=== PATIENT | female | born 1965 | race African-American/Black ===

== ENCOUNTER 2016-08-13 07:34 | Emergency (ER) | payer BC ==
[~2016-08-13] VITALS: Ht 170.2 cm; Wt 87.0 kg
[~2016-08-13 07:34] MED LIST: ADVIL200 M3 PO; ANUSOL-HC21 GM PR; BAYER BACK & B1 EACH PO; BIOTIN 5000MCG PO; DOCUSATE CALCI240 MG PO; FERROUS SULFAT325 MG PO; METFORMIN HCL500 MG PO; MIRALAX255 GM PO; PERCOCET 5/31 TABLET PO; SENNA8.6 M1 PO
[2016-08-13 08:45] LABS: HEMATOCRIT 36.2 % (36.0-46.0); MCH 21.6 PG (29.0-34.0); MCHC 30.7 G/DL (30.0-36.0); MCV 70.6 FL (83-99); MEAN PLAT.VOLUME 11.2 uM^3 (9.5-12.4); PLATELET COUNT 268 K/uL (156-360); RBC DIS.WIDTH-CV 19.3 % (11.8-14.6); RBC DIS.WIDTH-SD 48.7 % (39-53); RED BLOOD COUNT 5.13 M/uL (3.80-5.20); WHITE BLOOD COUNT 11.4 K/uL (4.1-10.2)
[2016-08-13 08:57] LABS: CHLORIDE 105 mEq/L (99-109); POTASSIUM 3.9 mEq/L (3.7-5.4); SODIUM 137 mEq/L (136-147)
[2016-08-13 08:59] LABS: GLUCOSE 145 mg/dL (70-99)
[2016-08-13 09:00] LABS: ANION GAP 12 MEQ/L (2-14)
[2016-08-13 09:01] LABS: TOTAL BILIRUBIN 0.6 mg/dL (0.0-1.0)
[2016-08-13 09:02] LABS: ALKALINE PHOSPHATASE 95 IU/L (3-129); GFR ESTIMATE (CALCULATED) > 59 mL/min/
[2016-08-13 09:04] LABS: UREA NITROGEN (BUN) 8 mg/dL (9-23)
[2016-08-13 09:06] LABS: LIPASE 21 U/L (1.0-51.0)
[2016-08-13 09:11] LABS: QUANTITATIVE HCG < 4.0 MIU/ML
[2016-08-13 11:16] LABS: ADD MIUA? YES; BILIRUBIN NEGATIVE; BLOOD SMALL; GLUCOSE (STRIP) NEGATIVE; KETONES NEGATIVE; LEUKOCYTES MODERATE; NITRITE NEGATIVE; PROTEIN (STRIP) NEGATIVE; SPECIFIC GRAVITY 1.009 (1.000-1.030); UROBILINOGEN 0.2 MG/DL (0.2-1.0)
[2016-08-13 11:18] LABS: COLOR PALE YELLOW ((YELLOW))
[2016-08-13 11:55] LABS: BACTERIA NONE SEEN; CASTS NONE SEEN /LPF; CRYSTALS NONE SEEN; EPITHELIAL CELLS RARE; MUCUS NONE SEEN; RED BLOOD CELLS NONE SEEN /HPF (0-5); UCUL ADDED? NO; WHITE BLOOD CELLS 0-5 /HPF (0-5)
[2016-08-13] MEDS ORDERED: NORCO 5/3251 TABLET PO (12:19)
[2016-08-13] MEDS ORDERED: NAPROSYN500 MG PO (12:19)
[2016-08-13] MEDS ORDERED: ZOFRAN ODT4 MG PO (12:19)
[2016-08-13 13:03] VITALS: BP 124/63
== END 2016-08-13 13:05 | disposition home or self-care (01) ==
LOC: EME 07:34
PROVIDERS: Nurse Practitioner Family
DX: R10.30 Lower abdominal pain, unspecified (principal); D25.9 Leiomyoma of uterus, unspecified; R11.2 Nausea with vomiting, unspecified; R30.0 Dysuria; R31.9 Hematuria, unspecified; E11.65 Type 2 diabetes mellitus with hyperglycemia; Z79.84 Long term (current) use of oral hypoglycemic drugs; Z91.09 Other allergy status, other than to drugs and biological substances
CPT/HCPCS: 74176; 76856; 80053; 81003; 83690; 84702; 85027; 99281; 99285; J1885; J2270; J7030

== ENCOUNTER → 2016-10-04 | Outpatient (CLI) | payer BC ==
[~2016-10-04] VITALS: Ht 170.2 cm; Wt 88.9 kg
[~2016-10-04] MED LIST changes: +ALEVE220 M2 PO; +NAPROSYN500 MG PO; +NORCO 5/3251 TABLET PO; +ZESTRIL10 MG PO; +ZOFRAN ODT4 MG PO
[2016-10-04 09:41] LABS: POINT-OF-CARE METER ID UU13113694
[2016-10-04 11:22] LABS: POINT-OF-CARE METER ID UU13113819
== END | disposition home or self-care (01) ==
LOC: AMB 09:00
PROVIDERS: Internal Medicine
PROC: 0DJD8ZZ Inspection of Lower Intestinal Tract, Via Natural or Artificial Opening Endoscopic (ICD-10-PCS; principal; 2016-10-04)
DX: Z12.11 Encounter for screening for malignant neoplasm of colon (principal); Z80.0 Family history of malignant neoplasm of digestive organs; E11.9 Type 2 diabetes mellitus without complications; D50.9 Iron deficiency anemia, unspecified; Z79.84 Long term (current) use of oral hypoglycemic drugs; Z91.09 Other allergy status, other than to drugs and biological substances; Z83.3 Family history of diabetes mellitus; Z82.49 Family history of ischemic heart disease and other diseases of the circulatory system; Z82.69 Family history of other diseases of the musculoskeletal system and connective tissue; I10 Essential (primary) hypertension; E66.9 Obesity, unspecified; Z68.31 Body mass index [BMI] 31.0-31.9, adult
CPT/HCPCS: 82948; J2250; J3010

== ENCOUNTER 2016-11-03 14:35 | Observation (INO) | payer BC ==
[~2016-11-03] VITALS: Ht 170.2 cm; Wt 86.8 kg
[2016-11-03 15:18] LABS: ADD MIUA? YES; BILIRUBIN NEGATIVE; BLOOD SMALL; COLOR STRAW ((YELLOW)); GLUCOSE (STRIP) NEGATIVE; KETONES NEGATIVE; LEUKOCYTES NEGATIVE; NITRITE NEGATIVE; PROTEIN (STRIP) 30; SPECIFIC GRAVITY 1.011 (1.000-1.030); UROBILINOGEN 0.2 MG/DL (0.2-1.0)
[2016-11-03 15:25] LABS: EOSINOPHIL (%) 0.1 % (0-5); HEMATOCRIT 38.6 % (36.0-46.0); IMMATURE GRANULOCYTE (%) 0.2 % (0.0-0.7); INSTRUMENT ABS NEUTROPHIL CT 8.9 K/uL; LYMPHOCYTE COUNT 1.5 K/uL (1.0-2.8); MCH 23.7 PG (29.0-34.0); MCHC 30.8 G/DL (30.0-36.0); MCV 76.9 FL (83-99); MEAN PLAT.VOLUME 10.5 uM^3 (9.5-12.4); MONOCYTE COUNT 0.3 K/uL (0-0.8); NEUTROPHIL (%) 82.5 % (45-76); NEUTROPHIL COUNT 8.9 K/uL (1.8-6.4); PLATELET COUNT 290 K/uL (156-360); RBC DIS.WIDTH-CV 16.7 % (11.8-14.6); RBC DIS.WIDTH-SD 46.5 % (39-53); RED BLOOD COUNT 5.02 M/uL (3.80-5.20); WHITE BLOOD COUNT 10.8 K/uL (4.1-10.2)
[2016-11-03 15:33] LABS: CHLORIDE 102 mEq/L (99-109); SODIUM 136 mEq/L (136-147)
[2016-11-03 15:35] LABS: GLUCOSE 108 mg/dL (70-99)
[2016-11-03 15:37] LABS: ANION GAP 10 MEQ/L (2-14); TOTAL BILIRUBIN 0.8 mg/dL (0.0-1.0)
[2016-11-03 15:39] LABS: ALKALINE PHOSPHATASE 97 IU/L (3-129); GFR ESTIMATE (CALCULATED) > 59 mL/min/
[2016-11-03 15:40] LABS: UREA NITROGEN (BUN) 9 mg/dL (9-23)
[2016-11-03 15:42] LABS: LIPASE 12 U/L (1.0-51.0)
[2016-11-03 15:48] LABS: BACTERIA 3+ /HPF; EPITHELIAL CELLS 2+ /HPF; MUCUS NONE SEEN /LPF; RED BLOOD CELLS 0-5 /HPF (0-5); WHITE BLOOD CELLS 0-5 /HPF (0-5)
[2016-11-03 15:58] LABS: QUANTITATIVE HCG < 4.0 MIU/ML
[2016-11-03] MEDS ORDERED: MOTRIN800 MG PO (18:40)
[2016-11-03] MEDS ORDERED: NORCO 10/3251 TABLET PO (18:40)
[2016-11-03 21:34] VITALS: BP 148/78
[2016-11-04] VITALS: BP 136/69
[2016-11-04 04:00] VITALS: BP 132/60
[2016-11-04 07:21] VITALS: BP 127/64
[2016-11-04 10:47] VITALS: BP 115/58
[2016-11-04] MEDS ORDERED: PERCOCET 5/31 TABLET PO (11:59)
[2016-11-04] MEDS ORDERED: PHENAZOPYRIDIN100 MG PO (11:59)
[2016-11-05 13:07] LABS: CHLAMYDIA TRACHOMATIS NEGATIVE; NEISSERIA GONORRHOEAE NEGATIVE
== END 2016-11-04 14:09 | disposition home or self-care (01) ==
LOC: EME 14:35 → EDOF 19:39 → 5WEST 19:39
PROVIDERS: Physician Assistant
DX: R10.31 Right lower quadrant pain (principal); R10.2 Pelvic and perineal pain; E11.9 Type 2 diabetes mellitus without complications
CPT/HCPCS: 76856; 80053; 81003; 83690; 84702; 85025; 87086; 87210; 87491; 87591; 99281; 99285; G0378; J1200; J1885; J3010

== ENCOUNTER 2017-02-10 15:53 | Emergency (ER) | payer BC ==
[~2017-02-10] VITALS: Ht 170.2 cm; Wt 92.3 kg
[~2017-02-10 15:53] MED LIST changes: +MOTRIN800 MG PO; +NORCO 10/3251 TABLET PO; +PHENAZOPYRIDIN100 MG PO
[2017-02-10 17:01] LABS: HEMATOCRIT 39.7 % (36.0-46.0); MCH 26.3 PG (29.0-34.0); MCV 82.4 FL (83-99); RBC DIS.WIDTH-CV 15.4 % (11.8-14.6); RBC DIS.WIDTH-SD 45.9 % (39-53); RED BLOOD COUNT 4.82 M/uL (3.80-5.20)
[2017-02-10 17:06] LABS: CHLORIDE 101 mEq/L (99-109); SODIUM 138 mEq/L (136-147)
[2017-02-10 17:09] LABS: GLUCOSE 122 mg/dL (70-99)
[2017-02-10 17:10] LABS: ANION GAP 12 MEQ/L (2-14)
[2017-02-10 17:11] LABS: TOTAL BILIRUBIN 0.8 mg/dL (0.0-1.0)
[2017-02-10 17:12] LABS: ALKALINE PHOSPHATASE 106 IU/L (3-129); GFR ESTIMATE (CALCULATED) > 59 mL/min/
[2017-02-10 17:13] LABS: UREA NITROGEN (BUN) 9 mg/dL (9-23)
[2017-02-10 17:21] LABS: QUANTITATIVE HCG < 4.0 MIU/ML
[2017-02-10 19:32] LABS: IMM.PLATELET FRACTION ND (1-7); MEAN PLAT.VOLUME ND uM^3 (9.5-12.4)
[2017-02-10 19:33] LABS: PLATELET COUNT ND K/uL (156-360)
[2017-02-10 19:58] LABS: ADD MIUA? YES; BILIRUBIN NEGATIVE; BLOOD MODERATE; COLOR STRAW ((YELLOW)); GLUCOSE (STRIP) NEGATIVE; KETONES NEGATIVE; LEUKOCYTES NEGATIVE; NITRITE NEGATIVE; PROTEIN (STRIP) NEGATIVE; SPECIFIC GRAVITY 1.005 (1.000-1.030); UROBILINOGEN 0.2 MG/DL (0.2-1.0)
[2017-02-10 20:01] LABS: BACTERIA RARE /HPF; EPITHELIAL CELLS RARE /HPF; MUCUS NONE SEEN /LPF; RED BLOOD CELLS 0-5 /HPF (0-5); UCUL ADDED? NO; WHITE BLOOD CELLS 0-5 /HPF (0-5)
[2017-02-10 20:06] LABS: PLATELET CLUMPS PRESENT - PLATELET COUNT APPEARS ADQ.
[2017-02-10] MEDS ORDERED: ZOFRAN ODT4 MG PO (21:35)
[2017-02-10] MEDS ORDERED: PERCOCET 5/31 TABLET PO (21:35)
[2017-02-10] MEDS ORDERED: MOTRIN800 MG PO (21:35)
[2017-02-10 23:33] VITALS: BP 0/0
== END 2017-02-10 23:36 | disposition home or self-care (01) ==
LOC: EME 15:53
DX: R10.31 Right lower quadrant pain (principal); R11.2 Nausea with vomiting, unspecified; D25.9 Leiomyoma of uterus, unspecified; D72.829 Elevated white blood cell count, unspecified
CPT/HCPCS: 74177; 76856; 80053; 81003; 84702; 85027; 85049; 99281; 99284; J1885; J2270; J2405; J7030

== ENCOUNTER 2017-03-28 13:12 | Emergency (ER) | payer BC ==
[~2017-03-28] VITALS: Ht 170.2 cm; Wt 91.0 kg
[2017-03-28 14:38] LABS: HEMATOCRIT 41.8 % (36.0-46.0); MCH 26.9 PG (29.0-34.0); MCHC 32.3 G/DL (30.0-36.0); MCV 83.4 FL (83-99); MEAN PLAT.VOLUME 10.8 uM^3 (9.5-12.4); PLATELET COUNT 250 K/uL (156-360); RBC DIS.WIDTH-CV 15.1 % (11.8-14.6); RBC DIS.WIDTH-SD 45.3 % (39-53); RED BLOOD COUNT 5.01 M/uL (3.80-5.20); WHITE BLOOD COUNT 16.9 K/uL (4.1-10.2)
[2017-03-28 14:49] LABS: CHLORIDE 103 mEq/L (99-109); POTASSIUM 4.3 mEq/L (3.7-5.4); SODIUM 139 mEq/L (136-147)
[2017-03-28 14:51] LABS: GLUCOSE 146 mg/dL (70-99)
[2017-03-28 14:53] LABS: ANION GAP 12 MEQ/L (2-14); TOTAL BILIRUBIN 0.9 mg/dL (0.0-1.0)
[2017-03-28 14:55] LABS: ALKALINE PHOSPHATASE 110 IU/L (3-129); GFR ESTIMATE (CALCULATED) > 59 mL/min/
[2017-03-28 14:56] LABS: UREA NITROGEN (BUN) 9 mg/dL (9-23)
[2017-03-28] MEDS ORDERED: PERCOCET 5/31 TABLET PO (16:39)
[2017-03-28] MEDS ORDERED: BENTYL20 MG PO (16:39)
[2017-03-28] MEDS ORDERED: PHENERGAN25 MG PR (16:39)
[2017-03-28] MEDS ORDERED: ZOFRAN ODT4 MG PO (16:40)
[2017-03-28 17:53] VITALS: BP 147/79
== END 2017-03-28 17:54 | disposition home or self-care (01) ==
LOC: EME 13:12
PROVIDERS: Nurse Practitioner Family
DX: R10.31 Right lower quadrant pain (principal); R11.2 Nausea with vomiting, unspecified; D72.829 Elevated white blood cell count, unspecified; Z79.84 Long term (current) use of oral hypoglycemic drugs
CPT/HCPCS: 80053; 81003; 85027; 99281; 99284; J1885; J2405; J3010; J7030